=== PATIENT | male | born 1990 | race Caucasian/White ===

== ENCOUNTER 2018-05-11 10:14 | Emergency (ER) | payer OTHER ==
[~2018-05-11] VITALS: Ht 185.4 cm; Wt 87.0 kg
[2018-05-11] MEDS ORDERED: ASPIRIN 81 MG TABLET CHEW ONE (11:05)
--- NOTE | 2018-05-11 11:05 | NUR ---
pt upright on gurney awake & comfortable, responds approp to staff, NAD, comfort measures provided, mom at BS, call light within reach.
[2018-05-11 11:17] LABS: BASOPHILS # (AUTO) 0.02 x10^3/uL (0-0.1); BASOPHILS % (AUTO) 0 % (0-1); EOSINOPHILS # (AUTO) 0.04 x10^3/uL (0-0.4); EOSINOPHILS % (AUTO) 0 % (1-7); LYMPHOCYTES # (AUTO) 1.71 x10^3/uL (1-3.4); LYMPHOCYTES % (AUTO) 19 % (22-44); MD NO; MEAN CORPUSCULAR HEMOGLOBIN 31.5 pg (27.5-34.5); MEAN CORPUSCULAR HGB CONC 34.4 g/dL (33.2-36.2); MEAN CORPUSCULAR VOLUME 91.8 fL (81-97); MEAN PLATELET VOLUME 8.6 fL (7.4-10.4); MONOCYTES % (AUTO) 6 % (2-9); NEUTROPHILS # (AUTO) 6.74 x10^3/uL (1.8-6.8); NEUTROPHILS % (AUTO) 75 % (42-75); PLATELET COUNT 215 x10^3/uL (130-400); RED BLOOD COUNT 5.32 x10^6/uL (4.38-5.82); RED CELL DISTRIBUTION WIDTH 11.8 % (9.4-14.8)
[2018-05-11 11:30] LABS: ALBUMIN 3.9 g/dL (3.4-5.0); ANION GAP 6 mmol/L (5-15); CALCIUM 8.9 mg/dL (8.5-10.1); CHLORIDE 110 mmol/L (98-107)
[2018-05-11] MEDS ORDERED: ASPIRIN 81 MG TABLET CHEW PO ONE (11:30)
[2018-05-11 11:36] LABS: ALANINE AMINOTRANSFERASE 43 U/L (12-78); ALKALINE PHOSPHATASE 53 U/L (45-117); CREATININE 1.13 mg/dL (0.7-1.3); FREE T4 (FREE THYROXINE) 0.89 ng/dL (0.76-1.46); TOTAL PROTEIN 6.9 g/dL (6.4-8.2); TROPONIN I < 0.015 ng/mL (0.000-0.045)
[2018-05-11] MEDS ORDERED: PROPOFOL 10 MG/ML, 20ML ONE (11:52)
[2018-05-11] MEDS ORDERED: PROPOFOL 10 MG/ML, 20ML IVPush ONE (12:00)
--- NOTE | 2018-05-11 12:01 | NUR ---
pt remains upright on gurney awake & comfortable, responds approp to staff, NAD, comfort measures provided, family at BS, call light within reach.
[2018-05-11 13:24] VITALS: BP 124/73
== END 2018-05-11 13:29 | disposition home or self-care (01) ==
LOC: ED 13:23
DX: I48.91 Unspecified atrial fibrillation (principal); F17.200 Nicotine dependence, unspecified, uncomplicated
CPT/HCPCS: 36415; 71045; 80053; 83605; 84439; 84443; 84484; 85025; 92960; 93005; 99285; J2704